=== PATIENT | female | born 1955 | race Caucasian/White ===

== ENCOUNTER 2018-09-17 16:34 | Observation (INO) | payer BC ==
[2018-09-17] MEDS ORDERED: Sodium Chloride 0.9% 1,000 ML IV STA (18:07)
[2018-09-17 18:38] LABS: BASO % 0.5 % (0.0-2.0); EOS # 0.1 K/uL (0.0-0.7); EOS % 1.2 % (0.0-4.0); HEMOGLOBIN 12.4 g/dL (12.0-16.0); LYMPH # 1.7 K/uL (1.0-4.3); LYMPH % 21.4 % (20.0-40.0); MEAN CELL VOLUME 94.7 fl (81.0-99.0); MEAN CORPUSCULAR HEMOGLOBIN 32.3 pg (27.0-31.0); MEAN CORPUSCULAR HGB CONC 34.1 g/dL (33.0-37.0); MEAN PLATELET VOLUME 8.4 fl (7.2-11.7); MONO # 0.6 K/uL (0.0-0.8); MONO % 8.1 % (0.0-10.0); NEUT # 5.5 K/uL (1.8-7.0); NEUT % 68.8 % (50.0-75.0); NRBC % 0.1 % (0.0-0.0); RBC 3.85 Mil/uL (3.80-5.20); RED CELL DISTRIBUTION WIDTH 12.6 % (11.5-14.5)
--- NOTE | 2018-09-17 18:46 | ED PDOC ---
HPI: Back Time Seen by Provider: 09/17/18 17:56 Chief Complaint (Nursing): Back Pain Chief Complaint (Provider): Back Pain History Per: Patient History/Exam Limitations: no limitations Onset/Duration Of Symptoms: Days (x3) Current Symptoms Are (Timing): Still Present Additional Complaint(s): 63 y/o female with a PMHx of CAD, HTN and Kidney Stones presents to the ED for evaluation of left flank pain, onset three days ago. Patient describes pain as "excruciating" further stating pain has been constant and worsening over the last three days. Of note, patient reports of having a kidney stone laser lithotripsy on August 10, 2018. Patient states she has had intermittently had chest pain since with associated difficulty with urination and nausea. Patient reports of having so much pain, she began to develop chest pain while in the waiting room. However, patient denies having any now. Otherwise, patient denies vomiting and fever. PMD: Isac Dejesus Urologist: Dr. Rdz Senior Investment Manager: Dr. Erwin Sandoval Past Medical History Reviewed: Historical Data, Nursing Documentation, Vital Signs Vital Signs: Last Vital Signs Temp 97.8 F 09/17/18 17:59 Pulse 78 09/17/18 17:59 Resp 18 09/17/18 17:59 BP 146/76 09/17/18 17:59 Pulse Ox 100 09/17/18 17:59 - Medical History PMH: CAD, HTN - Surgical History Surgical History: No Surg Hx - Family History Family History: States: Unknown Family Hx - Home Medications Home Medications: Ambulatory Orders Medication Instructions Recorded Aspirin [Adult Low Dose Aspirin EC] 1 tab PO DAILY 09/18/18 Atorvastatin [Lipitor] 5 mg PO HS 09/18/18 Cholecalciferol (Vitamin D3) 1,000 unit PO DAILY 09/18/18 [Vitamin D3] Dexlansoprazole [Dexilant] 30 mg PO DAILY 09/18/18 Irbesartan [Avapro] 75 mg PO DAILY 09/18/18 Levothyroxine [Synthroid] 138 mcg PO QAM 09/18/18 Sucralfate [Carafate] 1 gm PO BID 09/18/18 Vortioxetine Hydrobromide 1 tab PO DAILY 09/18/18 [Trintellix] amLODIPine [Norvasc] 1 tab PO DAILY 09/18/18 - Allergies Allergies/Adverse Reactions: Allergies Allergy/AdvReac Type Severity Reaction Status Date / Time amoxicillin [From Augmentin] Allergy RASH Verified 09/17/18 18:35 clavulanic acid Allergy RASH Verified 09/17/18 18:35 [From Augmentin] Review of Systems ROS Statement: Except As Marked, All Systems Reviewed And Found Negative Constitutional: Negative for: Fever Cardiovascular: Positive for: Chest Pain Gastrointestinal: Positive for: Nausea. Negative for: Vomiting Genitourinary Female: Positive for: Other (difficulty with urination) Musculoskeletal: Positive for: Back Pain (left flank pain) Physical Exam - Reviewed Nursing Documentation Reviewed: Yes Vital Signs Reviewed: Yes - Physical Exam Appears: Positive for: Uncomfortable Head Exam: Positive for: ATRAUMATIC, NORMOCEPHALIC Skin: Positive for: Normal Color, Warm, Dry Eye Exam: Positive for: Normal appearance, EOMI, PERRL Neck: Positive for: Normal, Painless ROM, Supple Cardiovascular/Chest: Positive for: Regular Rate, Rhythm. Negative for: Murmur Respiratory: Positive for: Normal Breath Sounds. Negative for: Respiratory Distress Gastrointestinal/Abdominal: Positive for: Normal Exam, Soft. Negative for: Tenderness Back: Positive for: L CVA Tenderness Extremity: Positive for: Normal ROM. Negative for: Deformity Neurologic/Psych: Positive for: Alert, Oriented. Negative for: Motor/Sensory Deficits - Laboratory Results Result Diagrams: 09/17/18 18:31 09/17/18 18:31 - ECG O2 Sat by Pulse Oximetry: 100 (RA) Pulse Ox Interpretation: Normal - Progress Re-evaluation Time: 21:30 Condition: Re-examined, Improving,but remains with symptoms Medical Decision Making Medical Decision Making: Time: 1818 Impression: Left flank pain and dysuria Differentials include but not limited to nephrolithiasis and UTI. Rule out ACS Plan: -- CT Abd/Pelvis IV Contrast ONLY -- EKG -- BMP -- Troponin I -- CBC with Differentials -- Sodium Chloride 0.9% IV 1000 mls/hr -- Toradol 30 mg IVP -- Zofran Inj 4 mg IVP -- Urine culture -- Urinalysis Time: 2109 CT RESULTS FINDINGS: LUNG BASES: The lung bases appear clear. No pleural effusions are seen. LIVER: There is mild hepatomegaly. The liver measured 16.6 cm in the midclavicular line. GALLBLADDER AND BILE DUCTS: The gallbladder appears within normal limits. No radioopaque gallstones are s een. No biliary ductal dilatation is evident. PANCREAS: Normal in size. A 7.0 mm hypodense zone is seen in the mid anterior body of the pancreas. This demonstrated a density measurement of -27.9 HU; and is therefore thought consistent with a small lipoma. SPLEEN: Unremarkable. ADRENAL GLANDS: Unremarkable. KIDNEYS, URETERS, AND BLADDER: The kidneys are normal in size and position. An approximately 4.5 mm obstructing calculus is seen in the distal left ureter. There is associated m ild left hydronephrosis and continuous left hydroureter. The urinary bladder is normal in size and configuration. STOMACH AND BOWEL: There is noted to have been previous gastric surgery. No evidence of bowel obstruction. There is mild mucosal wall thickening of the ileum which is fluid filled suggestive of enteritis (ileitis). No evidence to suggest colitis. APPENDIX: No evidence of acute appendicitis on CT examination. PERITONEUM: No free fluid. No free air. LYMPH NODES: No lymphadenopathy is evident. REPRODUCTIVE: Unremarkable as visualized. VASCULATURE: No evidence of abdominal aortic aneurysm. Extensive atherosclerotic vascular plaquing is present. BONES: No aggressive appearing osseous lesion. No acute osseous pathology evident. IMPRESSION: 1. An approximately 4.5 mm obstructing calculus is seen within the distal left ureter several centimeters proximal to the left UVJ. Associated mild left hydronephrosis a continuous left hydroureter are present. 2. Evidence of ileitis involving the small intestinal tract. 3. Extensive atherosclerotic vascular plaquing. 4. Status post previous gastric surgery. Correlation with past known abdominal surgical history is needed. 5. Mild hepatomegaly. Measurement is given above. 6. 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 Electronically signed on Sep 17, 2018 9:10:32 PM EST by: Luis Florence M.D., CHRISTOPHER Certified By [facility] Fellowship Trained MRI and CT Specialist Time: 2210 -- On re-evaluation, patient is in a lot of pain. Patient to be given another dose of morphine. Call placed for Dr. Rdz Time: 2227 -- Spoke to Dr. Rdz who requested patient to be admitted under Dr. Abdullahi, medical services. Provider to evaluate patient in the morning. -- Spoke to Dr. Abdullahi who accepts the patient under his service. Scribe Attestation: Documented by Marlon Marshall, acting as a scribe for Yuliet Garcia MD. Provider Scribe Attestation: All medical record entries made by the Scribe were at my direction and personally dictated by me. I have reviewed the chart and agree that the record accurately reflects my personal performance of the history, physical exam, medical decision making, and the department course for this patient. I have also personally directed, reviewed, and agree with the discharge instructions and disposition. Disposition - Clinical Impression Clinical Impression: Ureterolithiasis, Renal colic on left side - Patient ED Disposition Is Patient to be Admitted: Yes Discussed With : Zac Abdullahi Doctor Will See Patient In The: Hospital Counseled Patient/Family Regarding: Studies Performed, Diagnosis - Disposition Disposition Time: 21:30 Condition: FAIR - Pt Status Changed To: Hospital Disposition Of: Inpatient - Admit Certification Admit to Inpatient:: After my assessment, the patient will require hospitalization for at least two midnights. This is because of the severity of symptoms shown, intensity of services needed, and/or the medical risk in this patient being treated as an outpatient. - POA Present On Arrival: None
[2018-09-17 18:49] LABS: BLOOD UREA NITROGEN 25 mg/dl (7-17); CALCIUM 9.5 mg/dL (8.4-10.2); GFR NON-AFRICAN AMERICAN > 60
[2018-09-17] MEDS ORDERED: Morphine 4 MG/ML VIAL IVP STA ×2 (19:27→22:12)
[2018-09-17] MEDS ORDERED: Morphine 4 MG/ML VIAL ONE ×2 (19:37→22:12)
[2018-09-17 20:00] LABS: SQUAMOUS EPITHIAL 1 /hpf (0-5); URINE BACTERIA RARE (<OCC); URINE BILIRUBIN NEGATIVE (NEGATIVE); URINE BLOOD LARGE (NEGATIVE); URINE CLARITY CLOUDY (Clear); URINE COLOR YELLOW (YELLOW); URINE GLUCOSE (UA) NEG (NEGATIVE); URINE HYALINE CAST 0-2 /hpf (0-2); URINE LEUKOCYTE ESTERASE TRACE Leu/uL (Negative); URINE PROTEIN 30 mg/dL (NEGATIVE); URINE UROBILINOGEN 0.2-1.0 mg/dL (0.2-1.0)
[2018-09-17] MEDS ORDERED: Iohexol 300 100 ML IJ ONE (20:02)
[2018-09-17] MEDS ORDERED: Sodium Chloride 0.9% 50 ML IV ONE (20:02)
[2018-09-18] MEDS ORDERED: cefTRIAXone (Rocephin) 1 gm Inj ONE ×2 (01:23→10:56)
[2018-09-18] MEDS ORDERED: Morphine 4 MG/ML VIAL IVP PRN ×2 (01:39→06:50)
[2018-09-18] MEDS ORDERED: Morphine 4 MG/ML VIAL ONE (01:47)
[2018-09-18] MEDS: Sodium Chloride 0.9% 1,000 ML IV SCH ×2 (02:05→12:29)
--- NOTE | 2018-09-18 08:39 | CP.PCM.CON ---
History of Present Illness - History of Present Illness History of Present Illness: 63 yo woman w/ kidney stone, mild left hydro is referred for pain management. Per staff patient is likely to have surgery today. Pain is in the left flank, and radiates to the left groin. Patient does have chronic lower back pain but doesn't take opioids for it. She did try one of her mother's oxycodone prior to admission but it didn't help. Since admission, Morphine 4mg hasn't been sufficient. Past Patient History - Past Social History Smoking Status: Never Smoked - CARDIAC Hx Hypercholesterolemia: Yes Hx Hypertension: Yes - RENAL Hx Kidney Stones: Yes - ENDOCRINE/METABOLIC Hx Hyperthyroidism: Yes - MUSCULOSKELETAL/RHEUMATOLOGICAL Hx Falls: No - GENITOURINARY/GYNECOLOGICAL Other/Comment: Kidney stones - PSYCHIATRIC Hx Substance Use: No - SURGICAL HISTORY Hx Cholecystectomy: Yes Hx Coronary Stent: Yes Hx Gastric Bypass Surgery: Yes Hx Hysterectomy: Yes Hx Tonsillectomy: Yes Other/Comment: Cardiac stent,lithotripsy,arcquel's surgery - ANESTHESIA Hx Anesthesia: Yes Hx Anesthesia Reactions: No Meds Allergies/Adverse Reactions: Allergies Allergy/AdvReac Type Severity Reaction Status Date / Time amoxicillin [From Augmentin] Allergy RASH Verified 09/17/18 18:35 clavulanic acid Allergy RASH Verified 09/17/18 18:35 [From Augmentin] - Medications Medications: Current Medications Sodium Chloride (Sodium Chloride 0.9%) 1,000 mls @ 100 mls/hr IV .Q10H TARAN Stop: 09/19/18 01:43 Last Admin: 09/18/18 02:05 Dose: 100 mls/hr Ceftriaxone Sodium 1 gm/ (Sodium Chloride) 100 mls @ 100 mls/hr IVPB DAILY TARAN; Protocol Last Admin: 09/18/18 08:27 Dose: 100 mls/hr Influenza Virus Vaccine (Flucelvax Quad [id number] Syr) 60 mcg IM .ONCE ONE Stop: 09/18/18 09:01 Last Admin: 09/18/18 08:25 Dose: 60 mcg Morphine Sulfate (Morphine) 4 mg IVP Q4 PRN PRN Reason: Pain, severe (8-10) Last Admin: 09/18/18 06:54 Dose: 4 mg Pneumococcal Polyvalent Vaccine (Pneumovax 23 Vaccine) 0.5 ml IM .ONCE ONE Stop: 09/18/18 09:01 Last Admin: 09/18/18 08:26 Dose: 0.5 ml Physical Exam - Back Exam Back exam: CVA tenderness (L), CVA tenderness (R), paraspinal tenderness, tenderness Results - Vital Signs Recent Vital Signs: Last Vital Signs Temp 98.2 F 09/18/18 07:48 Pulse 79 09/18/18 07:48 Resp 19 09/18/18 07:48 BP 96/57 L 09/18/18 07:48 Pulse Ox 98 09/18/18 07:48 - Labs Result Diagrams: 09/17/18 18:31 09/17/18 18:31 Labs: Laboratory Results - last 24 hr 09/17/18 09/17/18 09/17/18 18:31 18:31 19:08 WBC 8.0 RBC 3.85 Hgb 12.4 Hct 36.5 MCV 94.7 D MCH 32.3 H MCHC 34.1 RDW 12.6 Plt Count 276 MPV 8.4 Neut % (Auto) 68.8 Lymph % (Auto) 21.4 [place] % (Auto) 8.1 Eos % (Auto) 1.2 Baso % (Auto) 0.5 Neut # (Auto) 5.5 Lymph # (Auto) 1.7 [place] # (Auto) 0.6 Eos # (Auto) 0.1 Baso # (Auto) 0.0 Sodium 136 Potassium 3.7 Chloride 96 L Carbon Dioxide 27 Anion Gap 17 BUN 25 H Creatinine 0.9 Est GFR ( Amer) > 60 Est GFR (Non-Af Amer) > 60 Random Glucose 138 H Calcium 9.5 Troponin I Urine Color Yellow Urine Clarity Cloudy Urine pH 5.0 Ur Specific [place] 1.028 Urine Protein 30 Urine Glucose (UA) Neg Urine Ketones Negative Urine Blood Large Urine Nitrate Negative Urine Bilirubin Negative Urine Urobilinogen 0.2-1.0 Ur Leukocyte Esterase Trace Urine RBC (Auto) 244 H Urine Microscopic WBC 6 H Ur Squamous Epith Cells 1 Urine Bacteria Rare Hyaline Casts 0-2 09/17/18 19:17 WBC RBC Hgb Hct MCV MCH MCHC RDW Plt Count MPV Neut % (Auto) Lymph % (Auto) [place] % (Auto) Eos % (Auto) Baso % (Auto) Neut # (Auto) Lymph # (Auto) [place] # (Auto) Eos # (Auto) Baso # (Auto) Sodium Potassium Chloride Carbon Dioxide Anion Gap BUN Creatinine Est GFR ( Amer) Est GFR (Non-Af Amer) Random Glucose Calcium Troponin I < 0.0120 Urine Color Urine Clarity Urine pH Ur Specific [place] Urine Protein Urine Glucose (UA) Urine Ketones Urine Blood Urine Nitrate Urine Bilirubin Urine Urobilinogen Ur Leukocyte Esterase Urine RBC (Auto) Urine Microscopic WBC Ur Squamous Epith Cells Urine Bacteria Hyaline Casts Assessment & Plan - Assessment and Plan (Free Text) Assessment: 63 yo woman w/ left nephrolithiasis, for OR later today. - d/c Morphine, start Dilaudid 1mg IV q3h PRN - continue Toradol
[2018-09-18] MEDS ORDERED: Influenza Vaccine 60 mcg/0.5 mL SYR (4YR UP) IM ONE (09:00)
[2018-09-18] MEDS ORDERED: Pneumococcal 23-Valent Vaccine IM ONE (09:00)
--- NOTE | 2018-09-18 10:33 | CT ---
Date of service: 09/17/2018 PROCEDURE: CT Abdomen and Pelvis with contrast HISTORY: Left flank pain. Relevant surgical history: Laser lithotripsy. COMPARISON: 10/24/2015. Abdominal ultrasound. Summary of findings on the comparison examination: Solitary calculus lower pole right kidney 6.3 mm. TECHNIQUE: Intravenous contrast dose: 95 cc Omnipaque 300. Radiation dose: Total exam DLP = 707.58 mGy-cm. This CT exam was performed using one or more of the following dose reduction techniques: Automated exposure control, adjustment of the mA and/or kV according to patient size, and/or use of iterative reconstruction technique. FINDINGS: LOWER THORAX: Unremarkable. LIVER: Unremarkable. No gross lesion or ductal dilatation. GALLBLADDER AND BILE DUCTS: Unremarkable. PANCREAS: Unremarkable. No gross lesion or ductal dilatation. SPLEEN: Unremarkable. ADRENALS: Unremarkable. No mass. KIDNEYS AND URETERS: Unilateral, left obstructive uropathy related to distal 7 mm calculus 2 cm from the left ureterovesical junction. Proximal left hydroureter and hydronephrosis noted. Left kidney is edematous. Unremarkable right kidney and ureter. VASCULATURE: Unremarkable. No aortic aneurysm. Atherosclerotic calcification and mural plaque present. Findings are seen throughout the aorta. BOWEL: Surgical changes related to gastric sleeve. APPENDIX: Normal appendix. PERITONEUM: Unremarkable. No free fluid. No free air. LYMPH NODES: Unremarkable. No enlarged lymph nodes. BLADDER: Unremarkable. REPRODUCTIVE: Unremarkable. BONES: No acute fracture. OTHER FINDINGS: None. IMPRESSION: Sub cm distal left ureteral calculus with resultant left hydroureter and hydronephrosis. No upper tract calculi detected. Additional benign and/or incidental findings described above. Concordant results (preliminary interpretation) provided by [employer]. Procedure Completed: 20:14. Preliminary Report: Dictated and Authenticated: 21:10. Final Interpretation: 10:29. September 18, 2018
[2018-09-18] MEDS ORDERED: Lidocaine 2% Jelly (Uro-Jet) ONE (10:56)
[2018-09-18] MEDS ORDERED: Iohexol 240 200 ML ONE (10:57)
[2018-09-18] MEDS ORDERED: Lactated Ringer's 1,000 ML IV ONE (11:00)
--- NOTE | 2018-09-18 11:00 | CP.PCM.HP ---
History of Present Illness - History of Present Illness History of Present Illness: This is a 63 y/o female with hx of CAD,HTN , Hyperlipidemia , [place]/ post stent 3 years ago, hypothyroidism, who presented to ER with excrucuating pain left flank. Had a recent lithotripsy Aug 10 2018 but apparently one of the debris wa s more than 4 mm and caused obstructrion at the left ureter. She was on Effient and ASA and recently Effient was discontinued. He followed up with Dr Dejesus and already had medical clearance given. Medical Hx CAD HTN Hypothyroidism Hyperlipidemia Present on Admission - Present on Admission Any Indicators Present on Admission: No History of DVT/PE: No History of Uncontrolled Diabetes: No Urinary Catheter: No Decubitus Ulcer Present: No Past Patient History - Past Social History Smoking Status: Never Smoked - CARDIAC Hx Hypercholesterolemia: Yes Hx Hypertension: Yes - RENAL Hx Kidney Stones: Yes - ENDOCRINE/METABOLIC Hx Hyperthyroidism: Yes - MUSCULOSKELETAL/RHEUMATOLOGICAL Hx Falls: No - GENITOURINARY/GYNECOLOGICAL Other/Comment: Kidney stones - PSYCHIATRIC Hx Substance Use: No - SURGICAL HISTORY Hx Cholecystectomy: Yes Hx Coronary Stent: Yes Hx Gastric Bypass Surgery: Yes Hx Hysterectomy: Yes Hx Tonsillectomy: Yes Other/Comment: Cardiac stent,lithotripsy,racquel's surgery - ANESTHESIA Hx Anesthesia: Yes Hx Anesthesia Reactions: No Meds Allergies/Adverse Reactions: Allergies Allergy/AdvReac Type Severity Reaction Status Date / Time amoxicillin [From Augmentin] Allergy RASH Verified 09/17/18 18:35 clavulanic acid Allergy RASH Verified 09/17/18 18:35 [From Augmentin] Physical Exam - Head Exam Head Exam: NORMAL INSPECTION - Eye Exam Eye Exam: Normal appearance - ENT Exam ENT Exam: Mucous Membranes Moist - Respiratory Exam Respiratory Exam: Clear to Auscultation Bilateral - GI/Abdominal Exam GI & Abdominal Exam: Normal Bowel Sounds - Neurological Exam Neurological exam: CN II-XII Intact - Psychiatric Exam Psychiatric exam: Normal Mood Results - Vital Signs Recent Vital Signs: Last Vital Signs Temp 98.2 F 09/18/18 07:48 Pulse 79 09/18/18 07:48 Resp 19 09/18/18 07:48 BP 96/57 L 09/18/18 07:48 Pulse Ox 98 09/18/18 07:48 - Labs Result Diagrams: 09/17/18 18:31 09/17/18 18:31 Labs: Laboratory Results - last 24 hr 09/17/18 09/17/18 09/17/18 18:31 18:31 19:08 WBC 8.0 RBC 3.85 Hgb 12.4 Hct 36.5 MCV 94.7 D MCH 32.3 H MCHC 34.1 RDW 12.6 Plt Count 276 MPV 8.4 Neut % (Auto) 68.8 Lymph % (Auto) 21.4 [place] % (Auto) 8.1 Eos % (Auto) 1.2 Baso % (Auto) 0.5 Neut # (Auto) 5.5 Lymph # (Auto) 1.7 [place] # (Auto) 0.6 Eos # (Auto) 0.1 Baso # (Auto) 0.0 Sodium 136 Potassium 3.7 Chloride 96 L Carbon Dioxide 27 Anion Gap 17 BUN 25 H Creatinine 0.9 Est GFR ( Amer) > 60 Est GFR (Non-Af Amer) > 60 Random Glucose 138 H Calcium 9.5 Troponin I Urine Color Yellow Urine Clarity Cloudy Urine pH 5.0 Ur Specific [place] 1.028 Urine Protein 30 Urine Glucose (UA) Neg Urine Ketones Negative Urine Blood Large Urine Nitrate Negative Urine Bilirubin Negative Urine Urobilinogen 0.2-1.0 Ur Leukocyte Esterase Trace Urine RBC (Auto) 244 H Urine Microscopic WBC 6 H Ur Squamous Epith Cells 1 Urine Bacteria Rare Hyaline Casts 0-2 09/17/18 19:17 WBC RBC Hgb Hct MCV MCH MCHC RDW Plt Count MPV Neut % (Auto) Lymph % (Auto) [place] % (Auto) Eos % (Auto) Baso % (Auto) Neut # (Auto) Lymph # (Auto) [place] # (Auto) Eos # (Auto) Baso # (Auto) Sodium Potassium Chloride Carbon Dioxide Anion Gap BUN Creatinine Est GFR ( Amer) Est GFR (Non-Af Amer) Random Glucose Calcium Troponin I < 0.0120 Urine Color Urine Clarity Urine pH Ur Specific [place] Urine Protein Urine Glucose (UA) Urine Ketones Urine Blood Urine Nitrate Urine Bilirubin Urine Urobilinogen Ur Leukocyte Esterase Urine RBC (Auto) Urine Microscopic WBC Ur Squamous Epith Cells Urine Bacteria Hyaline Casts Assessment & Plan (1) Ureterolithiasis Status: Acute (2) Renal colic on left side Status: Acute (3) CAD (coronary artery disease) Status: Acute (4) Hypertension Status: Acute (5) Hypothyroidism Status: Acute - Assessment and Plan (Free Text) Plan: Keep NPO Pain meds Morphine q 4 or Dilaudid IV antacid Pain mgt IV fluids Urology consult Discussed with DR Valderrama Reviewed labs PT PTT is normal; CBC cmp normal CXR normal Medically stable for surgery
[2018-09-18] MEDS ORDERED: Etomidate 20 mg/10ml Inj IV ONE (11:02)
[2018-09-18] MEDS ORDERED: Propofol 10 mg/ml Inj (20 ML) ONE (11:02)
--- NOTE | 2018-09-18 11:02 | CP.PCM.CON ---
History of Present Illness - History of Present Illness History of Present Illness: This 63-year-old female is well-known to me over the last 10 years. She has stable coronary artery disease and had required stenting of her coronary artery more than 5 years back for severe angina. She had never suffered an acute myocardial infarction and has never experienced congestive cardiac failure. I had seen the patient approximately 2 weeks back for evaluating her prior to lithotripsy which she did undergo approximately 1 week back. Subsequently she has developed severe renal colic and is now in the hospital via emergency room for possible stenting of her ureter. The patient reported having experienced some chest discomfort while in the emergency room and an electrocardiogram taken at that time shows sinus rhythm with nonspecific ST changes but no evidence of an acute myocardial ischemia. Troponins at that time were also normal. The patient at this juncture is free of any chest discomfort or shortness of breath and denies any chills or fever nausea or vomiting. She is able to lie virtually flat in bed and can carry on a conversation. Physical examination shows a pleasant middle aged female alert awake coherent in significant abdominal discomfort. Her respiratory rate was 16 breaths/min and her heart rate was 80 bpm and regular. Her jugular venous pressure was not elevated and there was no edema or lower extremity. The pedal pulses were well felt. Her blood pressure was 110/70 mmHg. Extremities were warm and nailbeds were pink. There was no central or peripheral cyanosis. The apex was vaguely felt in the fifth space. The first and second heart sounds were normal. There was no murmur or gallop. There were no rales. Her abdomen was soft there was no guarding rigidity. There was significant tenderness in the right lower quadrant. Her electrocardiogram taken in the emergency room shows sinus rhythm with nonspecific ST changes. The EKG pattern corresponds well to the electric cardiogram taken in my office approximately 2 weeks back. The lab data was noted. Impression: Acute renal colic probably secondary to persistent renal calculus. Stable coronary artery disease. Status post coronary stenting more than 5 years back. The patient is medically stable to proceed with the planned surgical procedure. Past Patient History - Past Social History Smoking Status: Never Smoked - CARDIAC Hx Hypercholesterolemia: Yes Hx Hypertension: Yes - RENAL Hx Kidney Stones: Yes - ENDOCRINE/METABOLIC Hx Hyperthyroidism: Yes - MUSCULOSKELETAL/RHEUMATOLOGICAL Hx Falls: No - GENITOURINARY/GYNECOLOGICAL Other/Comment: Kidney stones - PSYCHIATRIC Hx Substance Use: No - SURGICAL HISTORY Hx Cholecystectomy: Yes Hx Coronary Stent: Yes Hx Gastric Bypass Surgery: Yes Hx Hysterectomy: Yes Hx Tonsillectomy: Yes Other/Comment: Cardiac stent,lithotripsy,racquel's surgery - ANESTHESIA Hx Anesthesia: Yes Hx Anesthesia Reactions: No Meds Allergies/Adverse Reactions: Allergies Allergy/AdvReac Type Severity Reaction Status Date / Time amoxicillin [From Augmentin] Allergy RASH Verified 09/17/18 18:35 clavulanic acid Allergy RASH Verified 09/17/18 18:35 [From Augmentin] - Medications Medications: Current Medications Hydromorphone HCl (Dilaudid) 1 mg IVP Q3 PRN PRN Reason: Pain, severe (8-10) Last Admin: 09/18/18 09:00 Dose: 1 mg Sodium Chloride (Sodium Chloride 0.9%) 1,000 mls @ 100 mls/hr IV .Q10H TARAN Stop: 09/19/18 01:43 Last Admin: 09/18/18 02:05 Dose: 100 mls/hr Ceftriaxone Sodium 1 gm/ (Sodium Chloride) 100 mls @ 100 mls/hr IVPB DAILY TARAN; Protocol Last Admin: 09/18/18 08:27 Dose: 100 mls/hr Ketorolac Tromethamine (Toradol) 30 mg IVP Q6 PRN PRN Reason: Pain, moderate (4-7) Results - Vital Signs Recent Vital Signs: Last Vital Signs Temp 98.2 F 09/18/18 07:48 Pulse 79 09/18/18 07:48 Resp 19 09/18/18 07:48 BP 96/57 L 09/18/18 07:48 Pulse Ox 98 09/18/18 07:48 - Labs Result Diagrams: 09/17/18 18:31 09/17/18 18:31 Labs: Laboratory Results - last 24 hr 09/17/18 09/17/18 09/17/18 18:31 18:31 19:08 WBC 8.0 RBC 3.85 Hgb 12.4 Hct 36.5 MCV 94.7 D MCH 32.3 H MCHC 34.1 RDW 12.6 Plt Count 276 MPV 8.4 Neut % (Auto) 68.8 Lymph % (Auto) 21.4 [place] % (Auto) 8.1 Eos % (Auto) 1.2 Baso % (Auto) 0.5 Neut # (Auto) 5.5 Lymph # (Auto) 1.7 [place] # (Auto) 0.6 Eos # (Auto) 0.1 Baso # (Auto) 0.0 Sodium 136 Potassium 3.7 Chloride 96 L Carbon Dioxide 27 Anion Gap 17 BUN 25 H Creatinine 0.9 Est GFR ( Amer) > 60 Est GFR (Non-Af Amer) > 60 Random Glucose 138 H Calcium 9.5 Troponin I Urine Color Yellow Urine Clarity Cloudy Urine pH 5.0 Ur Specific [place] 1.028 Urine Protein 30 Urine Glucose (UA) Neg Urine Ketones Negative Urine Blood Large Urine Nitrate Negative Urine Bilirubin Negative Urine Urobilinogen 0.2-1.0 Ur Leukocyte Esterase Trace Urine RBC (Auto) 244 H Urine Microscopic WBC 6 H Ur Squamous Epith Cells 1 Urine Bacteria Rare Hyaline Casts 0-2 09/17/18 19:17 WBC RBC Hgb Hct MCV MCH MCHC RDW Plt Count MPV Neut % (Auto) Lymph % (Auto) [place] % (Auto) Eos % (Auto) Baso % (Auto) Neut # (Auto) Lymph # (Auto) [place] # (Auto) Eos # (Auto) Baso # (Auto) Sodium Potassium Chloride Carbon Dioxide Anion Gap BUN Creatinine Est GFR ( Amer) Est GFR (Non-Af Amer) Random Glucose Calcium Troponin I < 0.0120 Urine Color Urine Clarity Urine pH Ur Specific [place] Urine Protein Urine Glucose (UA) Urine Ketones Urine Blood Urine Nitrate Urine Bilirubin Urine Urobilinogen Ur Leukocyte Esterase Urine RBC (Auto) Urine Microscopic WBC Ur Squamous Epith Cells Urine Bacteria Hyaline Casts
[2018-09-18] MEDS ORDERED: Phenylephrine 10 mg/ml Inj ONE (11:05)
[2018-09-18] MEDS ORDERED: Liquid Adhesive TOP ONE (11:35)
[2018-09-18] MEDS ORDERED: HYDROmorphone 0.5 mg/0.5 ml ISec IVP PRN (11:46)
--- NOTE | 2018-09-18 11:57 | CARD ---
APPROVED REPORT Date of service: 09/17/2018 EKG Measurement Heart [id number] <Conclusion> Normal sinus rhythm Possible Left atrial enlargement Left ventricular hypertrophy Nonspecific ST abnormality Abnormal ECG
[2018-09-18 12:07] VITALS: RESP 18
--- NOTE | 2018-09-18 16:09 | RAD ---
Date of service: 09/18/2018 HISTORY: Admission/Pre-op COMPARISON: 09/16/2014 FINDINGS: LUNGS: No active pulmonary disease. PLEURA: No significant pleural effusion identified, no pneumothorax apparent. CARDIOVASCULAR: No atherosclerotic calcification present Normal. OSSEOUS STRUCTURES: No significant abnormalities. VISUALIZED UPPER ABDOMEN: Normal. OTHER FINDINGS: None. IMPRESSION: No active disease. No significant interval change compared to the prior examination(s).
[2018-09-18 16:16] VITALS: BP 102/61; PULSE 60; TEMP 97.6; O2SAT 94
--- NOTE | 2018-09-19 15:11 | RAD ---
Date of service: 09/18/2018 PROCEDURE: Intraoperative fluoroscopy HISTORY: CYSTO: LEFT URETERAL STONE REMOVAL AND STENT PLACEMENT COMPARISON: Not available TECHNIQUE: Intraoperative fluoroscopy was provided for left ureteral stone removal and left ureteral stent placement. Total time of fluoroscopy was 7.6 sec. Cumulative dose was not reported. FINDINGS: Two fluoroscopic spot films are submitted. These films are on file for review. IMPRESSION: Fluoroscopy provided.
--- NOTE | 2018-10-10 23:20 | OP ---
PROCEDURE DATE: 09/18/2018 PREOPERATIVE DIAGNOSIS: Left renal colic secondary to obstructive left ureteral calculus. POSTOPERATIVE DIAGNOSIS: Left renal colic secondary to obstructive left ureteral calculus. PROCEDURE PERFORMED: Cystoscopy, left ureteroscopy, stone basketing, and double J-stent placement under general anesthesia. SURGEON: Cyndi Rdz MD TYPE OF ANESTHESIA: General anesthesia. DESCRIPTION OF PROCEDURE: The patient was placed on the operating room table in a dorsal lithotomy position. The area of the groin was draped and prepped in a sterile manner. Using a short ureteroscope, I entered into the bladder atraumatically, identified the left ureteral orifice and over a floppy-tip guidewire, I advanced the ureteroscope to the level of the stone and then beyond the level. At this time, I deployed a double-helical basket, engaged the stone, and removed it completely. I did a second pass look into the ureter and did not see any residual stone. The specimen was sent for analysis. At this time, under fluoroscopy, I placed a 6-Brazilian multi-link double J-stent in place. Once this was done, the patient then was taken from the operating room in good condition. Cyndi Rdz MD
== END 2018-09-18 16:50 | disposition home or self-care (01) ==
LOC: H.ER 16:34 → H.ERHOLD 22:28 → H.MEDSURG1 09-18 02:51
PROVIDERS: ADMIT Family Medicine; ATTEND Family Medicine
DX: N13.2 Hydronephrosis with renal and ureteral calculous obstruction (principal); I25.10 Atherosclerotic heart disease of native coronary artery without angina pectoris; I10 Essential (primary) hypertension; Z23 Encounter for immunization; E78.00 Pure hypercholesterolemia, unspecified; E03.9 Hypothyroidism, unspecified; D17.9 Benign lipomatous neoplasm, unspecified; G89.29 Other chronic pain; Z79.82 Long term (current) use of aspirin; Z79.890 Hormone replacement therapy; Z90.710 Acquired absence of both cervix and uterus; Z90.49 Acquired absence of other specified parts of digestive tract; Z95.5 Presence of coronary angioplasty implant and graft; Z98.84 Bariatric surgery status; Z87.442 Personal history of urinary calculi; K52.9 Noninfective gastroenteritis and colitis, unspecified; E78.5 Hyperlipidemia, unspecified
CPT/HCPCS: 50945; 52332; 52351; 71045; 74177; 76000; 80048; 81003; 82355; 84484; 85025; 87086; 88300; 90674; 90732; 93005; 96365; 96375; 96376; 99285; C1769; C2617; G0008; G0009; G0378; J0696; J1170; J1885; J2270; J2370; J2405; J2704; J3010; J7030; J7120; Q9967

== ENCOUNTER 2018-09-21 22:59 | Observation (INO) | payer BC ==
[2018-09-21 23:08] VITALS: RESP 18
[2018-09-21] MEDS ORDERED: Morphine 4 MG/ML VIAL IVP ONE (23:34)
--- NOTE | 2018-09-21 23:40 | ED PDOC ---
HPI: Female Pain Time Seen by Provider: 09/21/18 23:07 Chief Complaint (Nursing): Female Genitourinary Chief Complaint (Provider): Left flank pain History Per: Patient, Family (daughter) History/Exam Limitations: no limitations Additional Complaint(s): 63 y/o F with hx of CAD s/p OK and stents, CVA, hypothyroidism, HTN who presents with recurrent Left flank pain. Pt recently had lithotripsy of Left renal calculus 1 week ago w/ some pieces that became obstructed so patient taken back to OR 5 days ago. Renal stent was placed and removed this afternoon in Dr. Rdz's office at 1:30pm. Patient developed recurrent left flank pain at about 5pm this evening and took 2 oxycodone within 1 hour with minimal relief. + nausea. Denies Vomiting, diarrhea Past Medical History Reviewed: Historical Data, Nursing Documentation, Vital Signs Vital Signs: Last Vital Signs Temp 98.2 F 09/21/18 23:03 Pulse 85 09/21/18 23:03 Resp 18 09/21/18 23:03 BP 164/93 H 09/21/18 23:03 Pulse Ox 100 09/21/18 23:03 - Medical History PMH: CAD, HTN, Hypercholesterolemia, Hyperthyroidism, Kidney Stones - Surgical History Surgical History: Cholecystectomy, Coronary Stent, Tonsillectomy Other surgeries: lithotripsy, ureteral stent - Family History Family History: States: Unknown Family Hx - Home Medications Home Medications: Ambulatory Orders Medication Instructions Recorded RX: Aspirin [Adult Low Dose 1 tab PO DAILY 09/18/18 Aspirin EC] RX: Atorvastatin [Lipitor] 5 mg PO HS 09/18/18 RX: Cholecalciferol (Vitamin D3) 1,000 unit PO DAILY 09/18/18 [Vitamin D3] RX: Dexlansoprazole [Dexilant] 30 mg PO DAILY 09/18/18 RX: Irbesartan [Avapro] 75 mg PO DAILY 09/18/18 RX: Levothyroxine [Synthroid] 138 mcg PO QAM 09/18/18 RX: Sucralfate [Carafate Oral Susp] 1 gm PO BID 09/18/18 RX: Vortioxetine Hydrobromide 1 tab PO DAILY 09/18/18 [Trintellix] RX: amLODIPine [Norvasc] 1 tab PO DAILY 09/18/18 - Allergies Allergies/Adverse Reactions: Allergies Allergy/AdvReac Type Severity Reaction Status Date / Time amoxicillin [From Augmentin] Allergy RASH Verified 09/21/18 23:03 clavulanic acid Allergy RASH Verified 09/21/18 23:03 [From Augmentin] Review of Systems Constitutional: Negative for: Fever Gastrointestinal: Positive for: Nausea. Negative for: Vomiting Genitourinary Female: Negative for: Dysuria Musculoskeletal: Positive for: Back Pain Physical Exam - Reviewed Nursing Documentation Reviewed: Yes Vital Signs Reviewed: Yes - Physical Exam Appears: Positive for: Uncomfortable Gastrointestinal/Abdominal: Positive for: Soft. Negative for: Tenderness, Distended, Guarding, Rebound Back: Positive for: Normal Inspection, L CVA Tenderness. Negative for: R CVA Tenderness Neurologic/Psych: Positive for: Alert, Oriented - Laboratory Results Result Diagrams: 09/21/18 23:45 09/21/18 23:45 - ECG O2 Sat by Pulse Oximetry: 100 Medical Decision Making Medical Decision Making: CBC, BMP Morphine 4mg IV x 1 Zofran 4mg IV X 1 NS 1L IV x [address] Rdz who called in to alert that patient was coming in, hydrate and treat with pain meds. Try to avoid scanning if possible given multiple recent scans. Will call Dr. Rdz with patient's progress. 04:30am: recurrent pain, Toradol 30mg IV x1 and NS 1L IV x [address] abd/pelvis to re-evaluate nephrolithiasis. CT abd/pelvis; FINDINGS: The visualized lung bases are unremarkable. Cardiomegaly. Mildly enlarged unchanged unenhanced liver. Prior gastric bypass surgery. Unchanged minimal right hydroureteronephrosis. Unchanged mild left hydroureteronephrosis. No obstructing stone is identified. Minimal gas density in the bladder, probably recent instrumentation. Uncomplicated colonic diverticulosis. Normal gallbladder and extrahepatic biliary system. Normal unenhanced spleen. Normal pancreas. Normal bilateral adrenal glands. Normal size of the right kidney. There is no right renal mass. There are no right renal calculi. Normal size of the left kidney. There is no left renal mass. There are no left renal calculi. Normal visualized stomach. Normal small intestine. The appendix is visualized and appears normal. There is no demonstrated peritoneal fluid. Normal abdominal aorta. Normal inferior vena cava. Normal retroperitoneum. Normal urinary bladder. There is no pelvic mass lesion or lymphadenopathy. There is no pelvic fluid. Surgical changes of anterior abdominal wall. Normal osseous structures. IMPRESSION: Cardiomegaly. Mildly enlarged unchanged unenhanced liver. Prior gastric bypass surgery. Unchanged minimal right hydroureteronephrosis. Unchanged mild left hydroureteronephrosis. No obstructing stone is identified. Minimal gas density in the bladder, probably recent instrumentation. Uncomplicated colonic diverticulosis. 06:20am: re-evaluated, patient's pain has improved. Case d/w Dr. Rdz who would like to observe patient until later tonight for recurrent pain as likely due to swelling from procedures and can occur intermittently. Patient to be admitted to Obs for intractable pain. Disposition - Clinical Impression Clinical Impression: Intractable pain, Renal colic on left side - Patient ED Disposition Is Patient to be Admitted: Yes Discussed With DrLina: Cyndi Rdz Doctor Will See Patient In The: Hospital Counseled Patient/Family Regarding: Studies Performed, Diagnosis, Need For Followup - Disposition Disposition: Transfer of Care Disposition Time: 06:40 Condition: STABLE Forms: [employer] (Lithuanian)
[2018-09-21] MEDS ORDERED: Morphine 4 MG/ML VIAL ONE (23:41)
[2018-09-21] MEDS: Sodium Chloride 0.9% 1,000 ML IV SCH (23:51)
[2018-09-22 00:14] LABS: BASO # 0.1 K/uL (0.0-0.2); BLOOD UREA NITROGEN 28 mg/dl (7-17); CALCIUM 9.9 mg/dL (8.4-10.2); EOS # 0.2 K/uL (0.0-0.7); EOS % 2.4 % (0.0-4.0); GFR NON-AFRICAN AMERICAN > 60; HEMOGLOBIN 12.7 g/dL (12.0-16.0); LYMPH # 3.3 K/uL (1.0-4.3); LYMPH % 41.3 % (20.0-40.0); MEAN CELL VOLUME 94.1 fl (81.0-99.0); MEAN CORPUSCULAR HEMOGLOBIN 31.9 pg (27.0-31.0); MEAN CORPUSCULAR HGB CONC 33.9 g/dL (33.0-37.0); MEAN PLATELET VOLUME 8.7 fl (7.2-11.7); MONO # 0.8 K/uL (0.0-0.8); MONO % 9.4 % (0.0-10.0); NEUT # 3.7 K/uL (1.8-7.0); NEUT % 45.9 % (50.0-75.0); NRBC % 0.1 % (0.0-0.0); RBC 3.99 Mil/uL (3.80-5.20); RED CELL DISTRIBUTION WIDTH 12.6 % (11.5-14.5); WHITE BLOOD COUNT 8.1 K/uL (4.8-10.8)
[2018-09-22] MEDS: Sodium Chloride 0.9% 1,000 ML IV SCH ×5 (04:45→06:49)
[2018-09-22] MEDS ORDERED: Naproxen 500 MG TAB PO STA (06:54)
[2018-09-22] MEDS ORDERED: Naproxen 500 MG TAB PO ONE (07:16)
[2018-09-22] MEDS: Dextrose 5%/0.9% NS 1,000 ML IV SCH ×2 (07:54→13:44)
--- NOTE | 2018-09-22 08:25 | CT ---
Date of service: 09/22/2018 PROCEDURE: CT Abdomen and Pelvis without intravenous contrast HISTORY: evaluate for obstructive nephrolithiasis COMPARISON: 09/17/2018 TECHNIQUE: Technique. Contrast dose: Radiation dose: Total exam DLP = 807.08 mGy-cm. This CT exam was performed using one or more of the following dose reduction techniques: Automated exposure control, adjustment of the mA and/or kV according to patient size, and/or use of iterative reconstruction technique. FINDINGS: LOWER THORAX: Cardiomegaly. LIVER: Unremarkable. No gross lesion or ductal dilatation. GALLBLADDER AND BILE DUCTS: Unremarkable. PANCREAS: Unremarkable. No gross lesion or ductal dilatation. SPLEEN: Unremarkable. ADRENALS: Unremarkable. No mass. KIDNEYS AND URETERS: Unchanged minimal right hydroureteronephrosis and mild left hydroureteronephrosis. No calculi. VASCULATURE: Unremarkable. No aortic aneurysm. No aortic atherosclerotic calcification or mural plaque present. BOWEL: Gastric sleeve surgery. Colonic diverticulosis. APPENDIX: Unremarkable. Normal appendix. PERITONEUM: Unremarkable. No free fluid. No free air. LYMPH NODES: Unremarkable. No enlarged lymph nodes. BLADDER: Air in the bladder compatible with recent instrumentation. REPRODUCTIVE: Unremarkable. BONES: No acute fracture. OTHER FINDINGS: None. IMPRESSION: Unremarkable non contrast enhanced CT of the abdomen and pelvis.
[2018-09-22] MEDS ORDERED: Pantoprazole 20 mg EC Tab PO SCH (09:00)
[2018-09-22] MEDS ORDERED: VORTIOXETINE HYDROBROMIDE PO SCH (09:00)
[2018-09-22] MEDS ORDERED: Cholecalciferol 1,000 INTLU TAB PO SCH (09:00)
[2018-09-22] MEDS: Sucralfate 1 gm/10 ml Oral Susp UD PO SCH ×2 (12:35→18:05)
[2018-09-22 16:55] VITALS: BP 106/66; PULSE 56; TEMP 97.6; O2SAT 95
== END 2018-09-22 18:38 | disposition home or self-care (01) ==
LOC: H.ER 22:59 → H.ERHOLD 09-22 06:41 → H.MEDSURG1 09-22 08:40
PROVIDERS: ADMIT Urology; ATTEND Urology
DX: N13.2 Hydronephrosis with renal and ureteral calculous obstruction (principal); Z87.442 Personal history of urinary calculi; Z95.5 Presence of coronary angioplasty implant and graft; Z98.84 Bariatric surgery status; E78.00 Pure hypercholesterolemia, unspecified; E05.90 Thyrotoxicosis, unspecified without thyrotoxic crisis or storm; E03.9 Hypothyroidism, unspecified; I11.9 Hypertensive heart disease without heart failure; I25.10 Atherosclerotic heart disease of native coronary artery without angina pectoris; I25.2 Old myocardial infarction; Z86.73 Personal history of transient ischemic attack (TIA), and cerebral infarction without residual deficits; K57.30 Diverticulosis of large intestine without perforation or abscess without bleeding
CPT/HCPCS: 74176; 80048; 85025; 96374; 96375; 96376; 99283; G0378; J1885; J2270; J2405; J7030; J7042